=== PATIENT | female | born 1965 | race Caucasian/White ===

== ENCOUNTER 2025-04-11 08:19 | Emergency (ER) | payer MEDICAID, OTHER ==
[~2025-04-11] VITALS: Ht 175.3 cm; Wt 57.7 kg
[2025-04-11 08:24] VITALS: BP 132/82; PULSE 72; O2SAT 97
[2025-04-11] MEDS: ondansetron 4mg rapidly disintigrating tab PO STA (10:39)
[2025-04-11] MEDS: ketorolac trometh 30MG/ML vial 30 MG/ML VIAL IM STA (10:40)
--- NOTE | 2025-04-11 10:43 | Physician Documentation ---
History of Present Illness ~ Chief Complaint: Headache Stated Complaint: HEADACHE X3 DAYS Time Seen by MD: 08:45 HPI The patient Is seen today with complaints of frontal headache with some nausea that started couple of days ago. Patient denies any aggravating factors and de nies any nasal discharge or recent cough or cold-like symptoms or fevers or chills. Patient has no other concern or complaint at this time. Denies any changes in vision or hearing chest pain, shortness of breath, abdominal pain but she does have some concern for nausea but no vomiting. Medication Reconciliation Allergies: Coded Allergies: Penicillins (Verified Allergy, Intermediate, swelling, 02/13/14) Review of Systems Constitutional: Denies: chills, fever, weakness Eyes: Denies: pain, blurred vision ENT: Denies: ear pain, nose pain, throat pain, mouth pain Respiratory: Denies: cough, shortness of breath Cardiovascular: Denies: chest pain, palpitations Gastrointestinal: Denies: abdominal pain, nausea, vomiting Genitourinary: Denies: burning, dysuria Female Genitalia: Denies: vaginal discharge, pelvic pain Neurological: Denies: headache, dizziness Musculoskeletal: Denies: pain, swelling Integumentary: Denies: rash, lesions Allergic/Immunologic: Denies: hives, itching Hematologic/Lymphatic: Denies: no symptoms reported Psychiatric: Denies: depression, anxiety Physical Exam Vital Signs: Temperature: 98.5, Source: Oral, Heart Rate: 72, Respiratory Rate: 16, BP: 132/82, Pulse Oximetry: 97, Weight: 57.700 Oxygen Flow Rate: 0 Physical Exam General: Awake and Alert, no acute distress. HEENT: Patient on exam does have some mild tenderness to palpation of the frontal area. I do not appreciate any swelling or erythema or cellulitis or sign of infection. Conjunctiva pink, Sclera clear, Mucus Membranes moist. Neck: Supple without masses and tenderness. Resp: Unlabored. Lungs clear to auscultation bilaterally. Heart: Regular Rate and rhythm, normal S1 and S2 without murmur, rub or gallop. Abdomen: Soft and non tender no organomegaly Extremities: No cyanosis,clubbing or edema. Skin: Warm and Dry. Progress Results/Orders Results/Orders Orders - JOURDAN POTTS PAC Ketorolac Trometh 30mg/Ml Vial (Toradol (04/11/25 10:13) Ondansetron Disint. Tablet (Zofran Odt T (04/11/25 10:13) Vital Signs 04/11/25 08:24 Temp 98.5 Pulse 72 Resp 16 B/P (MAP) 132/82 Pulse Ox 97 O2 Flow Rate 0 Medical Decision Making Findings The patient Is seen today with complaints of frontal headache with some nausea that started couple of days ago. Patient denies any aggravating factors and denies any nasal discharge or recent cough or cold-like symptoms or fevers or chills. Patient has no other concern or complaint at this time. Denies any changes in vision or hearing chest pain, shortness of breath, abdominal pain but she does have some concern for nausea but no vomiting. PATIENT WAS GIVEN DOSE OF TORADOL 30 MG IM, AND ZOFRAN 8 MG ODT IN THE ED TODAY. PATIENT TOLERATED WELL. PATIENT WILL FOLLOW UP WITH PRIMARY CARE IN 2-5 DAYS IF NO BETTER NEEDED SOONER. RETURN TO ED WITH ANY WORSENING, CONCERNING OR CHANGING SYMPTOMS. PATIENT AND I DID UTILIZE SHARED DECISION-MAKING TODAY. Departure Disposition: HOME / SELF CARE / HOMELESS Impression: Primary Impression: Headache Qualified Codes: G44.209 - Tension-type headache, unspecified, not intractable Condition: Improved Discharge Instructions: Headache Additional Instructions: PATIENT WAS GIVEN DOSE OF TORADOL 30 MG IM, AND ZOFRAN 8 MG ODT IN THE ED TODAY. PATIENT TOLERATED WELL. PATIENT WILL FOLLOW UP WITH PRIMARY CARE IN 2-5 DAYS IF NO BETTER NEEDED SOONER. RETURN TO ED WITH ANY WORSENING, CONCERNING OR CHANGING SYMPTOMS. PATIENT AND I DID UTILIZE SHARED DECISION-MAKING TODAY. Referrals: NO PRIMARY CARE PROVIDER (PCP) Signature Scribe Signature: No scribe Attestation: No scribe JOURDAN POTTS PAC Apr 11, 2025 10:43
[2025-04-11 11:39] VITALS: RESP 16
[2025-04-11 12:03] VITALS: TEMP 98.5
== END 2025-04-11 12:05 | disposition home or self-care (01) ==
LOC: ER 08:21
DX: R51.9 Headache, unspecified (principal); R11.0 Nausea; Z88.0 Allergy status to penicillin
CPT/HCPCS: 96372; 99283; J1885